=== PATIENT | male | born 1990 | race Caucasian/White ===

== ENCOUNTER 2023-06-08 16:43 | Emergency (ER) | payer SELFPAY ==
[~2023-06-08] VITALS: Ht 177.8 cm; Wt 79.4 kg
[2023-06-08 17:13] VITALS: BP 112/70; PULSE 88; RESP 16; TEMP 97.9; O2SAT 97
[2023-06-08] MEDS: methocarbamoL 500 MG TAB PO STA (20:36)
[2023-06-08] MEDS: predniSONE 20 MG TAB PO ONE (20:37)
[2023-06-08] MEDS: ACETAMINOPHEN 325 MG TAB PO ONE (20:39)
[2023-06-08] MEDS: LIDOCAINE 5% 1 EA PATCH TP ONE (20:41)
[2023-06-08] MEDS: KETOROLAC 30 MG/ML VIAL IM ONE (20:44)
[2023-06-08] MEDS ORDERED: PRED20TA5 PO (21:07)
[2023-06-08] MEDS ORDERED: IBUP-2213 PO (21:07)
[2023-06-08] MEDS ORDERED: METH-1681 PO (21:07)
[2023-06-08] MEDS ORDERED: LID5T TP (21:07)
== END 2023-06-08 21:13 | disposition home or self-care (01) ==
LOC: MED 16:43
DX: S39.012A Strain of muscle, fascia and tendon of lower back, initial encounter (principal); X58.XXXA Exposure to other specified factors, initial encounter; Y92.89 Other specified places as the place of occurrence of the external cause; Y93.89 Activity, other specified; Y99.8 Other external cause status
CPT/HCPCS: 72100; 96372; 99284; J1885; J7512